=== PATIENT | female | born 2000 | race African-American/Black ===

== ENCOUNTER 2020-11-24 11:10 | Emergency (ER) | payer OTHER ==
[~2020-11-24] VITALS: Ht 165.1 cm; Wt 79.7 kg
[2020-11-24] MEDS ORDERED: VITMTA PO (11:27)
[2020-11-24] MEDS ORDERED: MIDOTAB PO (11:27)
[2020-11-24 12:05] LABS: BASO % 0.9 % (0.0-1.0); EOS # 0.1 10^3/uL (0.0-0.5); EOS % 2.6 % (0.0-3.0); HEMATOCRIT 37.6 % (36.0-47.0); HEMOGLOBIN 12.7 g/dl (12.0-15.5); LYMPH # 1.8 10^3/uL (1.5-5.0); LYMPH % 42.4 % (24.0-44.0); MEAN CORPUSCULAR HEMOGLOBIN 29.5 pg (27.0-33.0); MEAN CORPUSCULAR HGB CONC 33.8 g/dl (32.0-36.5); MEAN CORPUSCULAR VOLUME 87.4 fl (80.0-96.0); MONO # 0.4 10^3/uL (0.0-0.8); MONO % 8.8 % (2.0-8.0); NEUTROPHILS # 1.9 10^3/uL (1.5-8.5); NEUTROPHILS % 45.3 % (36.0-66.0); PLATELET COUNT, AUTOMATED 253 10^3/uL (150-450); WHITE BLOOD COUNT 4.2 10^3/uL (4.0-10.0)
[2020-11-24] MEDS ORDERED: ONDANSETRON 4MG/2ML VIAL IV ONE (12:05)
--- NOTE | 2020-11-24 12:32 | REP ---
INDICATION: Syncope COMPARISON: None. TECHNIQUE: Axial noncontrast images from the skull base to the vertex with coronal reformations. This CT examination was performed using the following dose reduction techniques: Automated exposure control, adjustment of mA and/or kv according to the patient's size, and use of iterative reconstruction technique. FINDINGS: The ventricles, sulci, and cisterns are normal in position and appearance. Skinner-white differentiation is maintained. No acute intracranial hemorrhage, mass/mass effect, pathology or trauma/injury. No evidence for acute infarction. No extra-axial fluid collection. Calvarium is intact. Paranasal sinuses and mastoid air cells are clear. IMPRESSION: Normal noncontrast head CT. No evidence for acute intracranial pathology or trauma/injury. <Electronically signed by Ton Holloway > 11/24/20 [id number]
[2020-11-24 12:37] LABS: BLOOD UREA NITROGEN 11 MG/DL (7-18); CALCIUM LEVEL 8.9 MG/DL (8.5-10.1); CARBON DIOXIDE LEVEL 25 MEQ/L (21-32); CHLORIDE LEVEL 108 MEQ/L (98-107); CREATININE FOR GFR 0.85 MG/DL (0.55-1.30); FREE T4 1.04 NG/DL (0.76-1.46); GLOMERULAR FILTRATION RATE > 60.0 (>60); GLUCOSE, FASTING 84 MG/DL (70-100); POTASSIUM SERUM 3.9 MEQ/L (3.5-5.1); SODIUM LEVEL 139 MEQ/L (136-145); THYROID STIMULATING HORMONE 0.722 uIU/ML (0.358-3.740)
[2020-11-24 13:15] VITALS: BP 138/81
--- NOTE | 2020-11-24 19:25 | ECGEPIP ---
[facility] - ED Test Date: 2020-11-24 Pat Name: SHANNON FOREMAN Department: Room: - Gender: Female Applied Statistician: AUBREY : 2000 Requested By: Tina Lang Order Number: [id number] Reading MD: Tina Lang Measurements Intervals [place] Rate: 60 P: 0 SC: 214 QRS: 39 QRSD: 84 T: 17 QT: 442 QTc: 442 Interpretive Statements Sinus rhythm with 1st degree AV block T wave abnormality, consider anterior ischemia vs nonspecific ST T wave changes No prior ECG for comparison Electronically Signed on 11-24-2020 19:24:49 EDT by Tina Lang
== END 2020-11-24 13:29 | disposition home or self-care (01) ==
LOC: EDBD 11:10 → M ED 11:10
DX: R55 Syncope and collapse (principal); S09.90XA Unspecified injury of head, initial encounter; W01.0XXA Fall on same level from slipping, tripping and stumbling without subsequent striking against object, initial encounter; Y92.22 Religious institution as the place of occurrence of the external cause; Y93.9 Activity, unspecified; Y99.9 Unspecified external cause status; R94.31 Abnormal electrocardiogram [ECG] [EKG]; R51.9 Headache, unspecified
CPT/HCPCS: 70450; 80048; 84439; 84443; 84702; 85025; 93005; 93041; 94760; 96374; 99285; J2405

== ENCOUNTER 2021-05-12 10:00 | Emergency (ER) | payer OTHER ==
[~2021-05-12] VITALS: Ht 167.6 cm; Wt 77.3 kg
[2021-05-12 10:00] VITALS: BP 127/73
[~2021-05-12 10:00] MED LIST: MIDOTAB PO; VITMTA PO
[2021-05-12] MEDS ORDERED: methocarbamoL 750 MG TAB PO ONE (11:10)
[2021-05-12] MEDS ORDERED: LIDOCAINE 4% CREAM 5GM (LMX4) TOP ONE (11:10)
[2021-05-12] MEDS ORDERED: METOCLOPRAMIDE 10 MG TAB PO ONE (11:10)
[2021-05-12] MEDS ORDERED: ACETAMINOPHEN 500 MG TAB PO ONE (11:10)
[2021-05-12] MEDS ORDERED: ONDA4TAB6 PO (12:20)
[2021-05-12] MEDS ORDERED: NAPR-837 PO (12:20)
[2021-05-12] MEDS ORDERED: ANEC4CRE3 TOP (12:20)
== END 2021-05-12 12:31 | disposition home or self-care (01) ==
LOC: M ED 10:00
DX: S06.0X0A Concussion without loss of consciousness, initial encounter (principal); M54.2 Cervicalgia; R11.10 Vomiting, unspecified; W01.0XXA Fall on same level from slipping, tripping and stumbling without subsequent striking against object, initial encounter; W22.8XXA Striking against or struck by other objects, initial encounter; Z91.013 Allergy to seafood; Y92.009 Unspecified place in unspecified non-institutional (private) residence as the place of occurrence of the external cause; Y93.9 Activity, unspecified; Y99.9 Unspecified external cause status

== ENCOUNTER → 2021-07-15 | Outpatient (REF) ==
[~2021-07-15] MED LIST changes: +ANEC4CRE3 TOP; +NAPR-837 PO; +ONDA4TAB6 PO
== END ==
LOC: M PLAIMG 10:29
PROVIDERS: ATTEND Internal Medicine
DX: R06.02 Shortness of breath (principal)

== ENCOUNTER 2021-08-07 17:33 | Emergency (ER) | payer OTHER ==
[~2021-08-07] VITALS: Ht 167.6 cm; Wt 75.0 kg
[2021-08-07] MEDS ORDERED: PRAZ1CAP PO ×2 (18:08→22:50)
[2021-08-07] MEDS ORDERED: VITA100T39 PO (18:08)
[2021-08-07] MEDS ORDERED: FLUO20CA22 PO ×2 (18:08→22:50)
[2021-08-07] MEDS ORDERED: SERT25TA85 PO (18:08)
[2021-08-07 20:17] LABS: RSV AMPLIFICATION NEGATIVE (NEGATIVE)
[2021-08-07 20:22] LABS: HEMATOCRIT 41.1 % (36.0-47.0); HEMOGLOBIN 13.6 g/dl (12.0-15.5); MEAN CORPUSCULAR HEMOGLOBIN 29.6 pg (27.0-33.0); MEAN CORPUSCULAR HGB CONC 33.1 g/dl (32.0-36.5); MEAN CORPUSCULAR VOLUME 89.5 fl (80.0-96.0); PLATELET COUNT, AUTOMATED 293 10^3/uL (150-450); RED BLOOD COUNT 4.59 10^6/uL (4.00-5.40); WHITE BLOOD COUNT 6.3 10^3/uL (4.0-10.0)
[2021-08-07 20:41] LABS: HCG, SERUM QUALITATIVE NEGATIVE (NEGATIVE)
[2021-08-07 20:52] LABS: ACETAMINOPHEN LEVEL < 2.0 UG/ML (10.0-30.0); ALBUMIN 4.4 GM/DL (3.2-5.2); ALT/SGPT 20 U/L (12-78); AMPHETAMINES LEVEL URINE NEGATIVE (NEGATIVE); BARBITURATES URINE NEGATIVE (NEGATIVE); BENZODIAZEPINES URINE NEGATIVE (NEGATIVE); BILIRUBIN,DIRECT 0.1 MG/DL (0.0-0.2); BILIRUBIN,TOTAL 0.4 MG/DL (0.2-1.0); BLOOD UREA NITROGEN 6 MG/DL (7-18); CALCIUM LEVEL 9.4 MG/DL (8.5-10.1); CANNABINOIDS URINE NEGATIVE (NEGATIVE); CARBON DIOXIDE LEVEL 27 MEQ/L (21-32); CHLORIDE LEVEL 104 MEQ/L (98-107); COCAINE METABOLITE URINE NEGATIVE (NEGATIVE); CREATININE FOR GFR 0.86 MG/DL (0.55-1.30); ETHYL ALCOHOL (ETHANOL) 0.005 % (0.000-0.010); GLOMERULAR FILTRATION RATE > 60.0 (>60); GLUCOSE, FASTING 83 MG/DL (70-100); METHADONE URINE NEGATIVE (NEGATIVE); OPIATES URINE NEGATIVE (NEGATIVE); PHENCYCLIDINE URINE NEGATIVE (NEGATIVE); POTASSIUM SERUM 3.7 MEQ/L (3.5-5.1); SALICYLATE LEVEL < 1.7 MG/DL (5.0-30.0); SODIUM LEVEL 137 MEQ/L (136-145); TOTAL PROTEIN 8.1 GM/DL (6.4-8.2)
[2021-08-07] MEDS ORDERED: HOME MED LIST COMPLETE! XX SCH (22:50)
[2021-08-07] MEDS ORDERED: B-2100TA PO (22:50)
[2021-08-07] MEDS ORDERED: PROP20TA72 PO (22:50)
[2021-08-07] MEDS ORDERED: CETI-14 PO (22:50)
[2021-08-09 12:46] VITALS: BP 130/78
== END 2021-08-09 12:49 ==
LOC: M ED 17:33
DX: R45.851 Suicidal ideations (principal); F32.A Depression, unspecified; F10.10 Alcohol abuse, uncomplicated; Z91.013 Allergy to seafood